=== PATIENT | female | born 1985 | race Caucasian/White ===

== ENCOUNTER 2022-07-12 15:51 | Inpatient (IN) ==
[2022-07-12] MEDS ORDERED: LIDOCAINE 1% LOCAL 20 ML VIAL INFIL PRN (16:39)
[2022-07-12] MEDS ORDERED: LACTATED RINGER'S 1,000 ML IV PRN (16:39)
[2022-07-12] MEDS ORDERED: OXYTOCIN 30 UNITS/500 ML BAG IV PRN (16:39)
[2022-07-12] MEDS ORDERED: ceFAZolin 2000MG 2,000 MG/15 ML SYR IV STA (17:02)
[2022-07-12] MEDS ORDERED: BETAMETH SOD PHOS/ACETATE IA 6 MG/ML IM STA (17:03)
--- NOTE | 2022-07-12 17:14 | History & Physical Report ---
Date of Service July 12, 2022 Assessment & Plan (1) Dichorionic diamniotic twin : Plan: Spontaneous labor. Given advanced dilation and active contractions, patient is not able to be safely transferred to a tertiary center for delivery. I discussed this with her - will plan for delivery here, and the babies will likely need to be transferred for NICU care after delivery. I have discussed the patient's presentation with our nursery team and on-call carpet measurer. Will give ancef for GBS unknown - PCN allergy, hives, has taken keflex in the past. Celestone for lung maturity. I discussed vaginal delivery vs . Patient would like to attempt vaginal delivery. We discussed risks vs benefits - there is a risk of needing to perform a STAT for the 2nd twin. We reviewed consent for , including risks of hemorrhage, injury to surrounding organs/babies, blood clot, infection, scarring. She would like to get an epidural. I have discussed the case and plans for double-setup for delivery in OR with on-call anesthesiologist. I have called for a 2nd seam taper machine to be available to help with delivery - on- call doctor for our group tomorrow. Admission and Anticipated Discharge Date Admission Date: July 12, 2022 History of Present Illness Chief Complaint: rupture of membranes Primary Care Provider: Susan Wall, DO 36yo @ 34 0/7 with di/di twins, gush of clear fluid at home at 3:30 pm today. No vaginal bleeding. Some decrease in movement of babies today, but currently feeling them moving. Also feeling ctx, not really able to quantify. She also has asthma, occasional use of inhaler. H/o laparoscopic gallbladder removal. Was attending routine care at [place], however has moved to [place] and had her initial nursing visit with our practice. Upcoming first doctor visit with our practice is on Saturday. History of vaginal delivery x 2, her other children are 14 and 16 years old. Allergies Allergy/AdvReac Type Severity Reaction Status Date / Time bee venom protein (honey bee) Allergy Severe HIVES, Verified 02/27/15 19:30 LUMP IN THROAT adhesive Allergy Unknown UNKNOWN Unverified 02/27/15 19:30 Penicillins Allergy Unknown HIVES Verified 02/27/15 19:30 Sulfa (Sulfonamide Allergy Unknown Verified 06/07/15 19:30 Antibiotics) Home Medications Medication Instructions Recorded Confirmed Type albuterol sulfate PO PRN 07/11/22 07/11/22 History aspirin 81 mg tablet,delayed 81 mg PO DAILY 07/11/22 07/11/22 History release (Adult Low Dose Aspirin) docusate sodium [Colace] PO 07/11/22 07/11/22 History epinephrine [EpiPen] subcut 07/11/22 07/11/22 History ferrous sulfate PO 07/11/22 07/11/22 History prenat.vits,mikaela,[id number] 1 tab PO DAILY 07/11/22 07/11/22 History Patient History Medical History (Updated 07/11/22 @ 15:24 by Kassy Carolina) Asthma Carotidynia Finger laceration History of chicken pox Kidney stone Migraine Surgical History (Updated 07/11/22 @ 15:25 by Kassy Carolina) History of lithotripsy S/P cholecystectomy S/P wisdom tooth extraction Family History (Updated 07/11/22 @ 15:13 by Kassy Carolina) Mother Hypertension Diabetes Denies family history of Ovarian cancer Breast cancer Colorectal cancer Social History (Updated 07/11/22 @ 15:14 by Kassy Carolina) Smoking Status: Current every day smoker Cigarettes Per Day: 10; Second Hand Exposure: Yes; Do You Dip or Chew Tobacco: No; Tobacco Cessation Education Requested by Patient: No Hx Alcohol Use: No Hx Substance Use: No Preferred Language: Croatian Communication Ability: Effective Topographical Field Assistant Required: No Beliefs That Will Affect Care: None marital status: marital status details: satcy Morales (28) currently no phone number Current Living Situation Comment: Lives with mother, father, and 2 kids; ages 14 and 15 current occupational status: employed 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 Sterile spec exam: +pooling, + ferning, +nitrizine. Limited bedside ultrasound: cephalic/cephalic. Constitutional: WD/WN, vitals as above Respiratory: normal respiratory effort, lungs clear to auscultation no respiratory distress Cardiovascular: Rate/Rhythm: regular rate and regular rhythm Gastrointestinal (Abdomen): Inspection/Auscultation: abdomen normal to inspection Percussion/Palpation: abdomen soft; abdomen nontender Gravid. No s/s chorio or abruption. Skin: no rashes, warm and dry Psychiatric: A+Ox3, euthymic affect Results & Data ([facility]) Vital Signs (Past 12 Hours) Vital Signs Pulse BP 07/12/22 17:05 76 150/55 H 07/12/22 16:44 83 106/55 L Coding Level of Care Code None Diagnoses Dichorionic diamniotic twin O30.049
[2022-07-12 17:31] LABS: Hematocrit (blood only) 32.8 % (34.1-44.9); Hemoglobin 11.1 g/dl (12.0-16.0); Mean Corpuscular Hemoglobin 28.9 pg (25.0-34.0); Mean Corpuscular Hgb Conc 33.8 g/dL (32.0-36.0); Mean Corpuscular Volume 85.4 fL (80.0-100.0); Mean Platelet Volume 10.4 fL (9.4-12.3); Platelet Count 234 K/uL (130-400); RDW Coefficient of Variation 13.7 % (11.5-14.5); RDW Standard Deviation 42.6 fL (36.4-46.3); Red Blood Count 3.84 M/uL (3.93-5.22); White Blood Count 9.22 K/ul (4.8-10.8)
[2022-07-12] MEDS ORDERED: ePHEDrine sulfate 50 MG/ML AMP ONE ×2 (17:54→23:32)
[2022-07-12] MEDS ORDERED: LIDOCAINE 2%/EPINEPHRINE 1:200,000 20 ML SDV ONE (17:55)
[2022-07-12] MEDS ORDERED: SODIUM CHLORIDE 0.9% INJ 10 ML VIAL ONE (17:55)
[2022-07-12] MEDS ORDERED: BUPIVACAINE 0.25% 30 ML VIAL ONE (17:55)
[2022-07-12] MEDS ORDERED: fentaNYL citrate 100 MCG/2 ML VIAL ONE ×2 (17:55→23:32)
[2022-07-12] MEDS ORDERED: fentaNYL 2MCG/ML ROPIVACAINE 1.25MG/ML 100 ML BAG EPI ONE (17:56)
[2022-07-12] MEDS ORDERED: ePHEDrine sulfate 50 MG/ML AMP IV PRN ×2 (18:18→23:44)
[2022-07-12] MEDS ORDERED: NALBUPHINE HCL INJ 10 MG/ML AMP IV PRN ×2 (18:18→23:44)
[2022-07-12] MEDS ORDERED: fentaNYL 2MCG/ML ROPIVACAINE 1.25MG/ML 100 ML BAG EPI PRN (18:18)
[2022-07-12] MEDS ORDERED: ONDANSETRON INJ 2 MG/ML 2 ML VIAL IV PRN ×2 (18:18→23:44)
[2022-07-12] MEDS ORDERED: NALOXONE HCL 1 MG in SODIUM CHLORIDE 0.9% 1000ML 1,000 ML IV PRN ×2 (18:18→23:44)
[2022-07-12] MEDS ORDERED: NALOXONE HCL 0.4 MG/1 ML VIAL/CARP IV PRN ×2 (18:18→23:44)
[2022-07-12] MEDS ORDERED: diphenhydrAMINE 50 MG/ML VIAL IV PRN ×2 (18:18→23:44)
--- NOTE | 2022-07-12 18:21 | Anesthesiology Consultation ---
Date of Service July 12, 2022 Assessment & Plan (1) Encounter for pre-operative examination: Chart Review Chart Review: Patient NOT seen in Pre Admission Testing and Acceptable Risk for Labor Epidural Consults Requested none History Height/Weight Height: 5 ft 3.75 in Weight: 120.3 kg Allergies Allergy/AdvReac Type Severity Reaction Status Date / Time bee venom protein (honey bee) Allergy Severe HIVES, Verified 02/27/15 19:30 LUMP IN THROAT adhesive Allergy Unknown UNKNOWN Unverified 02/27/15 19:30 Penicillins Allergy Unknown HIVES Verified 02/27/15 19:30 Sulfa (Sulfonamide Allergy Unknown Verified 02/27/15 19:30 Antibiotics) Medications Home Medications Medication Instructions Recorded Confirmed Last Taken albuterol sulfate PO PRN 07/11/22 07/11/22 Unknown aspirin 81 mg tablet,delayed 81 mg PO DAILY 07/11/22 07/11/22 Unknown release (Adult Low Dose Aspirin) docusate sodium [Colace] PO 07/11/22 07/11/22 Unknown epinephrine [EpiPen] subcut 07/11/22 07/11/22 Unknown ferrous sulfate PO 07/11/22 07/11/22 Unknown prenat.vits,mikaela,[id number] 1 tab PO DAILY 07/11/22 07/11/22 Unknown Active Medications Generic Name Dose Route Start Last Admin Trade Name Freq PRN Reason Stop Dose Admin Lactated Ringer's 1,000 mls @ 125 mls/hr 07/12/22 16:39 07/12/22 18:31 Lr IV 07/14/22 16:38 125 mls/hr .Q8H PRN Administration L&D Protocol Protocol Past Medical History Medical History Asthma Carotidynia Finger laceration History of chicken pox Kidney stone Migraine Exercise / Class Metabolic Activity II 4-5 Yardwork/Stairs/Walk up hill Past Family History Family History Mother Hypertension Diabetes Denies family history of Ovarian cancer Breast cancer Colorectal cancer Past Surgical History Surgical History History of lithotripsy S/P cholecystectomy S/P wisdom tooth extraction Past Anesthesia History No Hx of Anesthesia Complications and No Family Hx of Anesthesia Complications History of PONV No Hx of PONV and No Hx of Motion Sickness Social History Smoking Status: Current every day smoker tobacco type: cigarettes Smoking cigarettes per day: 10 Do You Dip or Chew Tobacco: No Hx Alcohol Use: No Hx Substance Use: No substance use type: does not use Physical Exam Vital Signs Last Vital Signs Temp 37.1 C 07/12/22 16:59 Pulse 79 07/12/22 18:42 Resp 16 07/12/22 16:59 BP 115/62 07/12/22 18:42 Pulse Ox 97 07/12/22 18:42 Testing Laboratory Results 07/12/22 16:57 Blood Type B Positive 07/12/22 16:57 Antibody Screen NEGATIVE 07/12/22 16:57
[2022-07-12] MEDS ORDERED: Flu Vaccine (Fluarix) 0.5mL SYR (Standard Dose) IM ONE (19:15)
[2022-07-12] MEDS ORDERED: SODIUM CHLORIDE 0.9% 250 ML IV PRN (19:17)
--- NOTE | 2022-07-12 20:15 | Labor Progress Brief Note ---
Date of Service July 12, 2022 Subjective Comfortable with epidural. 6-7/80/-2 FHT Cat 1 both babies [place] Q 2 Continue labor. Assessment & Plan Admission and Anticipated Discharge Date Admission Date: July 12, 2022 Results & Data ([facility]) Vital Signs (Past 12 Hours) Vital Signs Temp Pulse Resp BP Pulse Ox 07/12/22 19:14 36.6 C 18 07/12/22 16:59 37.1 C 83 16 106/55 L 07/12/22 20:12 70 98 07/12/22 20:10 69 112/52 L 07/12/22 20:07 78 99 07/12/22 20:02 75 99 07/12/22 19:57 79 99 07/12/22 19:56 73 109/52 L 07/12/22 19:52 80 99 07/12/22 19:47 77 99 07/12/22 19:42 79 100 07/12/22 19:37 74 100 07/12/22 19:36 74 107/54 L 07/12/22 19:32 72 100 07/12/22 19:30 73 109/55 L 07/12/22 19:27 68 100 07/12/22 19:25 72 109/52 L 07/12/22 19:22 76 100 07/12/22 19:21 18 07/12/22 19:21 18 07/12/22 19:19 65 106/51 L 07/12/22 19:17 100 07/12/22 19:17 75 07/12/22 19:17 73 112/53 L 07/12/22 19:15 67 116/54 L 07/12/22 19:12 68 100 07/12/22 19:13 68 111/56 L 07/12/22 19:11 72 18 112/55 L 07/12/22 19:09 75 112/52 L 07/12/22 19:07 77 109/50 L 100 07/12/22 19:05 75 108/56 L 07/12/22 19:03 71 106/53 L 07/12/22 19:02 79 100 07/12/22 19:01 75 18 114/54 L 07/12/22 18:59 78 104/50 L 07/12/22 18:57 100 07/12/22 18:57 74 07/12/22 18:57 72 111/52 L 07/12/22 18:55 75 106/53 L 07/12/22 18:52 78 100 07/12/22 18:53 71 110/51 L 07/12/22 18:51 67 110/51 L 07/12/22 18:49 76 106/56 L 07/12/22 18:47 100 07/12/22 18:47 79 07/12/22 18:47 79 99/50 L 07/12/22 18:45 82 107/58 L 07/12/22 18:42 97 07/12/22 18:42 79 07/12/22 18:42 71 115/62 07/12/22 18:41 73 112/62 07/12/22 18:39 74 125/68 07/12/22 18:37 82 117/69 100 07/12/22 18:34 75 117/63 07/12/22 18:33 85 130/72 07/12/22 18:32 86 131/75 100 07/12/22 18:27 92 H 100 07/12/22 18:25 75 100 07/12/22 18:23 75 117/61 07/12/22 18:20 75 99 07/12/22 17:05 76 150/55 H 07/12/22 16:44 83 106/55 L Coding Level of Care Code None
--- NOTE | 2022-07-12 22:03 | Labor Progress Brief Note ---
Date of Service July 12, 2022 Subjective Pressure with ctx. FHT Cat 1 both babies [place] Q 2 SVE 7-8/80/-2 Bladder emptied for approx 800cc clear yellow urine. More pressure after bladder drained. Assessment & Plan Admission and Anticipated Discharge Date Admission Date: July 12, 2022 Results & Data ([facility]) Vital Signs (Past 12 Hours) Vital Signs Temp Pulse Resp BP Pulse Ox 07/12/22 19:14 36.6 C 18 07/12/22 16:59 37.1 C 83 16 106/55 L 07/12/22 21:57 76 98 07/12/22 21:56 75 112/53 L 07/12/22 21:52 73 99 07/12/22 21:47 72 100 07/12/22 21:42 82 99 07/12/22 21:41 78 119/57 L 07/12/22 21:37 74 98 07/12/22 21:32 70 98 07/12/22 21:27 70 98 07/12/22 21:26 70 113/50 L 07/12/22 21:22 72 97 07/12/22 21:01 18 07/12/22 21:01 36.7 C 18 07/12/22 21:17 74 98 07/12/22 21:12 69 98 07/12/22 21:10 69 104/55 L 07/12/22 21:07 68 98 07/12/22 21:02 77 100 07/12/22 20:57 69 100 07/12/22 20:52 76 99 07/12/22 20:29 18 07/12/22 20:29 18 07/12/22 19:35 18 07/12/22 19:35 18 07/12/22 19:55 18 07/12/22 19:55 18 07/12/22 20:47 70 99 07/12/22 20:42 72 99 07/12/22 20:41 74 107/51 L 07/12/22 20:37 69 100 07/12/22 20:32 64 99 07/12/22 20:27 75 98 07/12/22 20:26 66 106/50 L 07/12/22 20:22 71 99 07/12/22 20:17 72 99 07/12/22 20:12 70 98 07/12/22 20:10 69 112/52 L 07/12/22 20:07 78 99 07/12/22 20:02 75 99 07/12/22 19:57 79 99 07/12/22 19:56 73 109/52 L 07/12/22 19:52 80 99 07/12/22 19:47 77 99 07/12/22 19:42 79 100 07/12/22 19:37 74 100 07/12/22 19:36 74 107/54 L 07/12/22 19:32 72 100 07/12/22 19:30 73 109/55 L 07/12/22 19:27 68 100 07/12/22 19:25 72 109/52 L 07/12/22 19:22 76 100 07/12/22 19:21 18 07/12/22 19:21 18 07/12/22 19:19 65 106/51 L 07/12/22 19:17 100 07/12/22 19:17 75 07/12/22 19:17 73 112/53 L 07/12/22 19:15 67 116/54 L 07/12/22 19:12 68 100 07/12/22 19:13 68 111/56 L 07/12/22 19:11 72 18 112/55 L 07/12/22 19:09 75 18 112/52 L 07/12/22 19:07 77 109/50 L 100 07/12/22 19:05 75 108/56 L 07/12/22 19:03 71 106/53 L 07/12/22 19:02 79 100 07/12/22 19:01 75 18 114/54 L 07/12/22 18:59 78 104/50 L 07/12/22 18:57 100 07/12/22 18:57 74 07/12/22 18:57 72 111/52 L 07/12/22 18:55 75 106/53 L 07/12/22 18:52 78 100 07/12/22 18:53 71 110/51 L 07/12/22 18:51 67 110/51 L 07/12/22 18:49 76 106/56 L 07/12/22 18:47 100 07/12/22 18:47 79 07/12/22 18:47 79 99/50 L 07/12/22 18:45 82 107/58 L 07/12/22 18:42 97 10/20/22 18:42 79 07/12/22 18:42 71 115/62 07/12/22 18:41 73 112/62 07/12/22 18:39 74 125/68 07/12/22 18:37 82 117/69 100 07/12/22 18:34 75 117/63 07/12/22 18:33 85 130/72 07/12/22 18:32 86 131/75 100 07/12/22 18:27 92 H 100 07/12/22 18:25 75 100 07/12/22 18:23 75 117/61 07/12/22 18:20 75 99 07/12/22 17:05 76 150/55 H 07/12/22 16:44 83 106/55 L Coding Level of Care Code None
[2022-07-12] MEDS ORDERED: PROPOFOL IV EMULSION 10 MG/ML 20 ML VIAL IV ONE (23:28)
[2022-07-12] MEDS ORDERED: PHENYLEPHRINE 100MCG/ML 5ML SYR ONE (23:28)
[2022-07-12] MEDS ORDERED: SUCCINYLCHOLINE 100MG/5ML SYR IV ONE (23:28)
[2022-07-12] MEDS ORDERED: ONDANSETRON INJ 2 MG/ML 2 ML VIAL ONE (23:28)
[2022-07-12] MEDS ORDERED: OXYTOCIN 10 UNITS/ML 10ML VIAL ONE (23:32)
[2022-07-12] MEDS ORDERED: MoRPHine SULFATE PF 1 MG/ML 10 ML AMP/VIAL ONE (23:33)
[2022-07-12] MEDS ORDERED: ceFAZolin 1000MG 1,000 MG/7.5 ML SYR IV PRN (23:39)
[2022-07-12] MEDS ORDERED: AZITHROMYCIN 500 MG in DEXTROSE 5% 250 ML IV STA (23:42)
[2022-07-12] MEDS ORDERED: MoRPHine SULFATE PF 1 MG/ML 10 ML AMP/VIAL EPI ONE (23:44)
[2022-07-12] MEDS ORDERED: LACTATED RINGER'S 500 ML IV PRN (23:44)
[2022-07-12] MEDS ORDERED: MoRPHine SULFATE 2 MG/ML CARP IV PRN (23:44)
[2022-07-12] MEDS ORDERED: PROMETHAZINE HCL 6.25 MG in SODIUM CHLORIDE 0.9% 50 ML IV PRN (23:44)
[2022-07-12] MEDS ORDERED: KETOROLAC 30 MG/ML VIAL IV PRN (23:44)
[2022-07-12] MEDS ORDERED: NALOXONE HCL 0.08 MG in SYRINGE 1.8 ML IV PRN (23:44)
[2022-07-12] MEDS ORDERED: DC INTRASPINAL MORPHINE SCH (23:45)
[2022-07-12] MEDS ORDERED: NO NARCOTICS OR SEDATIVES SCH (23:45)
[2022-07-12] MEDS ORDERED: SODIUM CHLORIDE 0.9% 1000ML 1,000 ML IV SCH (23:45)
[2022-07-13 00:41] LABS: Base Excess Cord Arterial Bld -0.8 mEq/L (-9-1.8); CO2 Cord Arterial Blood 47 mmHg (39.1-73.5); HCO3 Cord Arterial Blood 25 mmol/L (19.7-28.5); Oxygen Sat Cord Arterial Blood 66.6 % (<60); PO2 Cord Arterial Blood 30 mmHg (4.1-31.7); pH Cord Arterial Blood 7.34 (7.1-7.38)
[2022-07-13 00:44] LABS: Base Excess Cord Venous Blood -2.5 mEq/L (-7.7-1.9); Cord Venous Blood HCO3 23 mmol/L (18.4-26.8); Cord Venous Blood PCO2 39 mmHg (30.4-57.2); Cord Venous Blood PO2 47 mmHg (14.1-43.3); Cord Venous Blood pH 7.37 (7.20-7.44); O2 Saturation Cord Venous Bld 87.6 % (<68)
[2022-07-13 00:50] LABS: Base Excess Cord Venous Blood -10.4 mEq/L (-7.7-1.9); Cord Venous Blood HCO3 21 mmol/L (18.4-26.8); Cord Venous Blood PCO2 72 mmHg (30.4-57.2); Cord Venous Blood PO2 24 mmHg (14.1-43.3); Cord Venous Blood pH 7.07 (7.20-7.44); O2 Saturation Cord Venous Bld < 60.0 % (<68)
--- NOTE | 2022-07-13 00:55 | Anesthesia Procedure Note ---
Date of Service July 13, 2022 Anesthesia Post Epidural Note Vital Signs Vital Signs: Temp Pulse Resp BP Pulse Ox 36.7 C 119 H 18 116/55 L 100 07/12/22 21:01 07/13/22 00:54 07/12/22 21:01 07/13/22 00:46 07/13/22 00:54 Notes Mental Status: alert / awake / arousable and participated in evaluation Nausea / Vomiting: adequately controlled Pain: adequately controlled Airway Patency, RR, SpO2: stable & adequate BP & HR: stable & adequate Hydration State: stable & adequate Neuraxial Anesthesia: was administered and sensory block is resolving Anesthetic Complications: no major complications apparent and Pt Satisfied with anesthetic care Epidural: Removed without complications and With tip intact
[2022-07-13] MEDS ORDERED: BENZOCAINE 20% AER SPR 82.5 GM CAN EXT PRN (00:56)
[2022-07-13] MEDS ORDERED: HYDROCORTISONE ACETATE 25 MG SUPP PR PRN (00:56)
--- NOTE | 2022-07-13 00:56 | Anesthesiology Progress Note ---
Date of Service July 13, 2022 Anesthesia Post Procedure Vital Signs Vital Signs: Temp Pulse Resp BP Pulse Ox 07/12/22 19:14 36.6 C 18 07/12/22 16:59 37.1 C 83 16 106/55 L 07/13/22 00:54 119 H 100 07/13/22 00:51 102 H 91 07/13/22 00:49 104 H 100 07/13/22 00:46 108 H 116/55 L 07/13/22 00:44 109 H 100 07/12/22 23:10 77 98 07/12/22 23:05 85 97 07/12/22 23:00 87 100 07/12/22 22:47 84 100 07/12/22 22:42 79 98 07/12/22 22:43 83 109/66 07/12/22 22:37 77 99 07/12/22 22:32 81 98 07/12/22 22:27 75 98 07/12/22 22:25 75 110/57 L 07/12/22 22:22 76 99 07/12/22 22:17 75 99 07/12/22 22:12 81 97 07/12/22 22:11 72 115/53 L 07/12/22 22:07 75 98 07/12/22 22:02 77 98 07/12/22 21:57 76 98 07/12/22 21:56 75 112/53 L 07/12/22 21:52 73 99 07/12/22 21:47 72 100 07/12/22 21:42 82 99 07/12/22 21:41 78 119/57 L 07/12/22 21:37 74 98 07/12/22 21:32 70 98 07/12/22 21:27 70 98 07/12/22 21:26 70 113/50 L 07/12/22 21:22 72 97 07/12/22 21:01 18 07/12/22 21:01 36.7 C 18 07/12/22 21:17 74 98 07/12/22 21:12 69 98 07/12/22 21:10 69 104/55 L 07/12/22 21:07 68 98 07/12/22 21:02 77 100 07/12/22 20:57 69 100 07/12/22 20:52 76 99 07/12/22 20:29 18 07/12/22 20:29 18 07/12/22 19:35 18 07/12/22 19:35 18 07/12/22 19:55 18 07/12/22 19:55 18 07/12/22 20:47 70 99 07/12/22 20:42 72 99 07/12/22 20:41 74 107/51 L 07/12/22 20:37 69 100 07/12/22 20:32 64 99 07/12/22 20:27 75 98 07/12/22 20:26 66 106/50 L 07/12/22 20:22 71 99 07/12/22 20:17 72 99 07/12/22 20:12 70 98 07/12/22 20:10 69 112/52 L 07/12/22 20:07 78 99 07/12/22 20:02 75 99 07/12/22 19:57 79 99 07/12/22 19:56 73 109/52 L 07/12/22 19:52 80 99 07/12/22 19:47 77 99 07/12/22 19:42 79 100 07/12/22 19:37 74 100 07/12/22 19:36 74 107/54 L 07/12/22 19:32 72 100 07/12/22 19:30 73 109/55 L 07/12/22 19:27 68 100 07/12/22 19:25 72 109/52 L 07/12/22 19:22 76 100 07/12/22 19:21 18 07/12/22 19:21 18 07/12/22 19:19 65 106/51 L 07/12/22 19:17 100 07/12/22 19:17 75 07/12/22 19:17 73 112/53 L 07/12/22 19:15 67 116/54 L 07/12/22 19:12 68 100 07/12/22 19:13 68 111/56 L 07/12/22 19:11 72 18 112/55 L 07/12/22 19:09 75 18 112/52 L 07/12/22 19:07 77 109/50 L 100 07/12/22 19:05 75 108/56 L 07/12/22 19:03 71 106/53 L 07/12/22 19:02 79 100 07/12/22 19:01 75 18 114/54 L 07/12/22 18:59 78 104/50 L 07/12/22 18:57 100 07/12/22 18:57 74 07/12/22 18:57 72 111/52 L 07/12/22 18:55 75 106/53 L 07/12/22 18:52 78 100 07/12/22 18:53 71 110/51 L 07/12/22 18:51 67 110/51 L 07/12/22 18:49 76 106/56 L 07/12/22 18:47 100 07/12/22 18:47 79 07/12/22 18:47 79 99/50 L 07/12/22 18:45 82 107/58 L 07/12/22 18:42 97 07/12/22 18:42 79 07/12/22 18:42 71 115/62 07/12/22 18:41 73 112/62 07/12/22 18:39 74 125/68 07/12/22 18:37 82 117/69 100 07/12/22 18:34 75 117/63 07/12/22 18:33 85 130/72 07/12/22 18:32 86 131/75 100 07/12/22 18:27 92 H 100 07/12/22 18:25 75 100 07/12/22 18:23 75 117/61 07/12/22 18:20 75 99 07/12/22 17:05 76 150/55 H 07/12/22 16:44 83 106/55 L Transfer of Care Handoff Completed per policy Notes Mental Status: alert / awake / arousable and participated in evaluation Patient Amnestic to Procedure: Yes Nausea / Vomiting: adequately controlled Pain: adequately controlled Airway Patency, RR, SpO2: stable & adequate BP & HR: stable & adequate Hydration State: stable & adequate Anesthetic Complications: no major complications apparent and Pt Satisfied with anesthetic care
--- NOTE | 2022-07-13 01:06 | Operative Report ---
PG Post Operative Report Pre & Post Diagnosis Operation Date: 07/12/22 23:30 Pre: Di/di twin gestation, labor Post: same + umbilical cord prolapse of Twin B I identified the patient and participated in the time-out.: Yes Procedure Operation Date: 07/12/22 23:30 Spontaneous vaginal delivery of Twin A, STAT low-transverse section with T-incision of Twin B Surgeon Anya Yu, DO Lead Applications Developer Mimi Salvador MD Estimated Blood Loss 700 Findings Consistent with Post-Op Diagnosis Viable male neonates. Twin A: Apgars 8/9. Twin B: Apgars 2/9. Normal appearing uterus, fallopian tubes, ovaries. Specimens Cord blood Twin B, Cord gas Twin A and B. Placentas. Drains marte clear yellow Anesthesia Type General/Epidural Complications none Disposition Accompanied Patient To Recovery: No Disposition: L&D Indications 36yo @ 34 0/7 - di/di twin gestation, spontaneous labor. Twin A delivered vaginally, however then Twin B's umbilical cord prolapsed, therefore primary section was performed. Description of Procedure The patient was seen in her labor and delivery room upon arrival, and la bor was diagnosed. At time of arrival, patient had progressed enough in labor that transfer to a tertiary center was not safe. We discussed informed consent for both vaginal delivery and section of twins, with likely need for transfer of babies to a NICU after . She preferred to attempt vaginal delivery. Informed consent discussed. Questions were answered. She was administered an epidural, and progressed in labor to complete dilation. She was then taken to the OR to deliver under a "double setup." Infant A delivered spontaneously with a few pushes, was placed on mother's chest and spontaneously cried. Delayed cord clamping was performed, and the cord was doubly clamped/cut. The was handed off to waiting production cook. Cord segment was obtained. Ultrasound showed Baby B in cephalic presentation, however Baby B was high in the uterus - head was barely palpable. The cervix clamped down after delivery of Twin A. Then a loop of umbilical cord of Twin B was pa lpable - separate from the remaining umbilical cord of Baby A. Decision was made to deliver Twin B by section - this was quickly discussed with patient and her mother, and she was agreeable to proceed. She was then prepared with betadine and draped in the supine position with a leftward tilt. Timeout was confirmed. Inadequate pain control with epidural, therefore patient was put under general anesthesia. A Pfannenstiel skin incision was made with a scalpel, and carried through to the underlying layer of fascia. Fascia was nicked at midline, and this incision was extended bilaterally. The superior aspect of the fascial incision was grasped with Matt clamps x2, elevated off the underlying rectus abdominis muscles, and dissected sharply and bluntly. In similar fashion, the inferior aspect of the fascial incision was dissected. The rectus abdominis muscles were , and the peritoneum was entered bluntly digitally. This was extended bilaterally. The bladder flap was taken down carefully using Metzenbaum scissors. Using a new scalpel, a low transverse uterine incision was created. Attempts were made to deliver the from the cephalic presentation - however the head was very high in the uterus, and uterine fundus was atonic. The baby could not be brought down to the incision, therefore the uterine incision was extended in a "T-incision" carefully with bandage scissors. The head was then able to be brought to the hysterotomy, and the head delivered, followed by shoulders and body. The cord was doubly clamped and cut, and the infant was handed off to the waiting production cook. A segment was retained for cord gases. Cord blood was obtained. The placenta was delivered spontaneously intact. The uterus was exteriorized, and cleared of all clots and debris. The hysterotomy extension was reapproximated with 3 layers of 0 Vicryl - a running layer of the inner 50%, then a running layer of the outer 50%, and then a baseball stitch of the serosa. The remaining hysterotomy incision was reapproximated using 0 Vicryl in a running locked stitch. A second layer of the same suture was used to imbricate the incision. Posterior uterus was evaluated and normal. The uterus was returned to the abdomen, and gutters were cleared of clots and debris. Excellent hemostasis was observed. The fascial incision was reapproximated using 0 Vicryl in a running stitch. The subcutaneous tissue was irrigated, and reapproximated using 2-0 plain gut in a running stitch. The skin was reapproximated using 4-0 Vicryl in a running subcuticular stitch. A WEI dressing was applied. The patient tolerated the procedure well, and will be taken to the recovery area in stable and good condition. Sponge, needle, instrument counts correct x 2. Vagina, perineum inspected and no lacerations noted. I attest to the content of the Intraoperative Record and any orders documented therein. Any exceptions are noted below. OB Procedure Charges [id number]
[2022-07-13] MEDS: OXYTOCIN 30 UNITS in LACTATED RINGER'S 1,000 ML IV SCH ×2 (02:25→11:27)
[2022-07-13 04:20] LABS: Amphetamines+Metham, Urine Neg (Neg); Barbiturates, Urine Neg (Neg); Benzodiazepine, Urine Neg (Neg); Cocaine, Urine Neg (Neg); MDMA (Ecstacy), Urine Neg (Neg); Methadone, Urine Neg (Neg); Opiate, Urine Pos (Neg); Phencyclidine, Urine Neg (Neg)
--- NOTE | 2022-07-13 05:50 | Obstetrical Progress Note ---
Date of Service <Stormy Bolaños, DO - Last Filed: 07/13/22 07:12> July 13, 2022 Assessment & Plan <Stormy Bolaños DO - Last Filed: 07/13/22 07:12> (1) Status post section: plan for d/c Jimenez, do a trial of OOB and ambulation and then progress diet as tolerated <Anya Yu, DO - Last Filed: 07/13/22 07:57> (1) Status post section: Subjective <Stormy Bolaños, DO - Last Filed: 07/13/22 07:12> Linda is a 36 y/o female who is POD #1 following delivery at 34 0/7 weeks. She had di/di twins. Twin A was born via and Twin B was born via stat C Section due to umbical cord prolapse. Moderate abdominal cramping well managed on analgesics. Still has Jimenez in place. No ambulation yet. Is passing gas and no bowel movement. Has some persistent lochia with some improvement this morning. Hopes to breastfeed in the future and plans to pump today. Review of Systems Denies fever, chills, sweats Denies shortness of breath, difficulty breathing, chest pain, palpitations, chest pressure. Denies breast pain. Denies dysuria. Denies headache or changes in vision. Physical Exam <Stormy Bolaños DO - Last Filed: 07/13/22 07:12> General: Alert, oriented. No acute distress. Cardiac: Regular rate and rhythm, no murmurs/rubs/gallops. Respiratory: Clear to auscultation bilaterally a/p, no wheezes/rales/rhonchi. No increased work of breathing. Symmetrical chest rise. No respiratory distress. Abdomen: Soft, nontender, nondistended. Bowel sounds present. Uterus: Uterine fundus firm, palpable 1 cm below umbilicus. Surgical scar clean and healing well. Lower Extremities: No lower extremity edema or swelling. No deep calf pain. Maite's negative bilaterally. Results & Data ([facility]) <Stormy Bolaños DO - Last Filed: 07/13/22 07:12> Vital Signs (Past 12 Hours) Vital Signs Temp Pulse Pulse Resp BP BP Pulse Ox 07/13/22 04:57 16 99 07/13/22 04:00 36.4 C L 90 16 105/65 97 07/13/22 04:00 18 97 07/13/22 03:18 14 07/13/22 01:40 14 07/13/22 01:30 14 07/13/22 01:20 14 07/13/22 01:10 16 07/13/22 00:50 16 07/13/22 02:20 14 07/13/22 01:50 14 07/13/22 01:00 16 07/12/22 19:14 36.6 C 18 07/13/22 03:24 99 07/13/22 03:24 92 H 07/13/22 03:24 91 H 97/50 L 07/13/22 03:19 81 98 07/13/22 03:14 86 98 07/13/22 03:09 96 H 101/53 L 100 07/13/22 03:04 104 H 99 07/13/22 02:59 91 H 98 07/13/22 02:58 99 H 105/56 L 07/13/22 02:54 104 H 99/48 L 99 07/13/22 02:49 83 99 07/13/22 02:44 94 H 99 07/13/22 02:39 99 07/13/22 02:39 82 07/13/22 02:39 93 H 100/54 L 07/13/22 02:34 105 H 100 07/13/22 02:29 75 99 07/13/22 02:24 99 07/13/22 02:24 82 07/13/22 02:24 91 H 100/55 L 07/13/22 02:19 75 99 07/13/22 02:14 92 H 99 07/13/22 02:09 98 07/13/22 02:09 94 H 07/13/22 02:09 96 H 107/57 L 07/13/22 02:04 87 99 07/13/22 01:59 87 99 07/13/22 01:54 91 H 100 07/13/22 01:49 87 97 07/13/22 01:44 85 99 07/13/22 01:39 95 H 98 07/13/22 01:34 100 H 100 07/13/22 01:29 89 99 07/13/22 01:24 96 H 100 07/13/22 01:19 89 100 07/13/22 01:14 94 H 100 07/13/22 01:09 92 H 100 07/13/22 01:04 102 H 100 07/13/22 00:59 101 H 100 07/13/22 00:54 119 H 100 07/13/22 00:51 102 H 91 07/13/22 00:49 104 H 100 07/13/22 00:46 108 H 116/55 L 07/13/22 00:44 109 H 100 07/12/22 23:10 77 98 07/12/22 23:05 85 97 07/12/22 23:00 87 100 07/12/22 22:47 84 100 07/12/22 22:42 79 98 07/12/22 22:43 83 109/66 07/12/22 22:37 77 99 07/12/22 22:32 81 98 07/12/22 22:27 75 98 07/12/22 22:25 75 110/57 L 07/12/22 22:22 76 99 07/12/22 22:17 75 99 07/12/22 22:12 81 97 07/12/22 22:11 72 115/53 L 07/12/22 22:07 75 98 07/12/22 22:02 77 98 07/12/22 21:57 76 98 07/12/22 21:56 75 112/53 L 07/12/22 21:52 73 99 07/12/22 21:47 72 100 07/12/22 21:42 82 99 07/12/22 21:41 78 119/57 L 07/12/22 21:37 74 98 07/12/22 21:32 70 98 07/12/22 21:27 70 98 07/12/22 21:26 70 113/50 L 07/12/22 21:22 72 97 07/12/22 21:01 18 07/12/22 21:01 36.7 C 18 07/12/22 21:17 74 98 07/12/22 21:12 69 98 07/12/22 21:10 69 104/55 L 07/12/22 21:07 68 98 07/12/22 21:02 77 100 07/12/22 20:57 69 100 07/12/22 20:52 76 99 07/12/22 20:29 18 07/12/22 20:29 18 07/12/22 19:35 18 07/12/22 19:35 18 07/12/22 19:55 18 07/12/22 19:55 18 07/12/22 20:47 70 99 07/12/22 20:42 72 99 07/12/22 20:41 74 107/51 L 07/12/22 20:37 69 100 07/12/22 20:32 64 99 07/12/22 20:27 75 98 07/12/22 20:26 66 106/50 L 07/12/22 20:22 71 99 07/12/22 20:17 72 99 07/12/22 20:12 70 98 07/12/22 20:10 69 112/52 L 07/12/22 20:07 78 99 07/12/22 20:02 75 99 07/12/22 19:57 79 99 07/12/22 19:56 73 109/52 L 07/12/22 19:52 80 99 07/12/22 19:47 77 99 07/12/22 19:42 79 100 07/12/22 19:37 74 100 07/12/22 19:36 74 107/54 L 07/12/22 19:32 72 100 07/12/22 19:30 73 109/55 L 07/12/22 19:27 68 100 07/12/22 19:25 72 109/52 L 07/12/22 19:22 76 100 07/12/22 19:21 18 07/12/22 19:21 18 07/12/22 19:19 65 106/51 L 07/12/22 19:17 100 07/12/22 19:17 75 07/12/22 19:17 73 112/53 L 07/12/22 19:15 67 116/54 L 07/12/22 19:12 68 100 07/12/22 19:13 68 111/56 L 07/12/22 19:11 72 18 112/55 L 07/12/22 19:09 75 18 112/52 L 07/12/22 19:07 77 109/50 L 100 07/12/22 19:05 75 108/56 L 07/12/22 19:03 71 106/53 L 07/12/22 19:02 79 100 07/12/22 19:01 75 18 114/54 L 07/12/22 18:59 78 104/50 L 07/12/22 18:57 100 07/12/22 18:57 74 07/12/22 18:57 72 111/52 L 07/12/22 18:55 75 106/53 L 07/12/22 18:52 78 100 07/12/22 18:53 71 110/51 L 07/12/22 18:51 67 110/51 L 07/12/22 18:49 76 106/56 L 07/12/22 18:47 100 07/12/22 18:47 79 07/12/22 18:47 79 99/50 L 07/12/22 18:45 82 107/58 L 07/12/22 18:42 97 07/12/22 18:42 79 07/12/22 18:42 71 115/62 07/12/22 18:41 73 112/62 07/12/22 18:39 74 125/68 07/12/22 18:37 82 117/69 100 07/12/22 18:34 75 117/63 07/12/22 18:33 85 130/72 07/12/22 18:32 86 131/75 100 07/12/22 18:27 92 H 100 07/12/22 18:25 75 100 07/12/22 18:23 75 117/61 07/12/22 18:20 75 99 O2 Del Method 07/13/22 04:57 07/13/22 04:00 Room Air 07/13/22 04:00 07/13/22 03:18 07/13/22 01:40 07/13/22 01:30 07/13/22 01:20 07/13/22 01:10 07/13/22 00:50 07/13/22 02:20 07/13/22 01:50 07/13/22 01:00 07/12/22 19:14 07/13/22 03:24 07/13/22 03:24 07/13/22 03:24 07/13/22 03:19 07/13/22 03:14 07/13/22 03:09 07/13/22 03:04 07/13/22 02:59 07/13/22 02:58 07/13/22 02:54 07/13/22 02:49 07/13/22 02:44 07/13/22 02:39 07/13/22 02:39 07/13/22 02:39 07/13/22 02:34 07/13/22 02:29 07/13/22 02:24 07/13/22 02:24 07/13/22 02:24 07/13/22 02:19 07/13/22 02:14 07/13/22 02:09 07/13/22 02:09 07/13/22 02:09 07/13/22 02:04 07/13/22 01:59 07/13/22 01:54 07/13/22 01:49 07/13/22 01:44 07/13/22 01:39 07/13/22 01:34 07/13/22 01:29 07/13/22 01:24 07/13/22 01:19 07/13/22 01:14 07/13/22 01:09 07/13/22 01:04 07/13/22 00:59 07/13/22 00:54 07/13/22 00:51 07/13/22 00:49 07/13/22 00:46 07/13/22 00:44 07/12/22 23:10 07/12/22 23:05 07/12/22 23:00 07/12/22 22:47 07/12/22 22:42 07/12/22 22:43 07/12/22 22:37 07/12/22 22:32 07/12/22 22:27 07/12/22 22:25 07/12/22 22:22 07/12/22 22:17 07/12/22 22:12 07/12/22 22:11 07/12/22 22:07 07/12/22 22:02 07/12/22 21:57 07/12/22 21:56 07/12/22 21:52 07/12/22 21:47 07/12/22 21:42 07/12/22 21:41 07/12/22 21:37 07/12/22 21:32 07/12/22 21:27 07/12/22 21:26 07/12/22 21:22 07/12/22 21:01 07/12/22 21:01 07/12/22 21:17 07/12/22 21:12 07/12/22 21:10 07/12/22 21:07 07/12/22 21:02 07/12/22 20:57 07/12/22 20:52 07/12/22 20:29 07/12/22 20:29 07/12/22 19:35 07/12/22 19:35 07/12/22 19:55 07/12/22 19:55 07/12/22 20:47 07/12/22 20:42 07/12/22 20:41 07/12/22 20:37 07/12/22 20:32 07/12/22 20:27 07/12/22 20:26 07/12/22 20:22 07/12/22 20:17 07/12/22 20:12 07/12/22 20:10 07/12/22 20:07 07/12/22 20:02 07/12/22 19:57 07/12/22 19:56 07/12/22 19:52 07/12/22 19:47 07/12/22 19:42 07/12/22 19:37 07/12/22 19:36 07/12/22 19:32 07/12/22 19:30 07/12/22 19:27 07/12/22 19:25 07/12/22 19:22 07/12/22 19:21 07/12/22 19:21 07/12/22 19:19 07/12/22 19:17 07/12/22 19:17 07/12/22 19:17 07/12/22 19:15 07/12/22 19:12 07/12/22 19:13 07/12/22 19:11 07/12/22 19:09 07/12/22 19:07 07/12/22 19:05 07/12/22 19:03 07/12/22 19:02 07/12/22 19:01 07/12/22 18:59 07/12/22 18:57 07/12/22 18:57 07/12/22 18:57 07/12/22 18:55 07/12/22 18:52 07/12/22 18:53 07/12/22 18:51 07/12/22 18:49 07/12/22 18:47 07/12/22 18:47 07/12/22 18:47 07/12/22 18:45 07/12/22 18:42 07/12/22 18:42 07/12/22 18:42 07/12/22 18:41 07/12/22 18:39 07/12/22 18:37 07/12/22 18:34 07/12/22 18:33 07/12/22 18:32 07/12/22 18:27 07/12/22 18:25 07/12/22 18:23 07/12/22 18:20 <Anya Yu, - Last Filed: 07/13/22 07:57> Co-Signing Physician Notes Resident Physician Supervision Note: I interviewed and examined the patient. Discussed with Dr. Bolaños and agree with findings and plan as documented in the note. Any exceptions or clarifications are listed here: POD#1, doing well. WEI in place. Discussed plans for advancing diet and ambulation. Documented By: Anya Yu DO Resident Activity Tracking <Stormy Bolaños, - Last Filed: 07/13/22 07:12> Resident Involvement: Resident Care Provided Care Provided: OB Delivery (Post )
[2022-07-13] MEDS ORDERED: diphenhydrAMINE Capsule 25 MG CAP PO ONE (07:37)
[2022-07-13] MEDS: DOCUSATE SODIUM 100 MG CAP PO SCH ×2 (09:58→20:16)
[2022-07-13] MEDS: PRENATAL VITAMIN 1 TAB PO SCH (09:58)
[2022-07-13] MEDS ORDERED: ONDANSETRON INJ 2 MG/ML 2 ML VIAL IV PRN (17:44)
[2022-07-13] MEDS ORDERED: KETOROLAC 30 MG/ML VIAL IV PRN (17:44)
[2022-07-13] MEDS ORDERED: CALCIUM CARBONATE 500 MG CHEWABLE TAB PO PRN (20:32)
[2022-07-13] MEDS: IBUPROFEN 600 MG TAB PO PRN (22:26)
[2022-07-13] MEDS: oxyCODONE/ACETAMINOPHEN 5mg/325mg TAB PO PRN (22:26)
[2022-07-14 07:09] LABS: Hematocrit (blood only) 22.9 % (34.1-44.9); Hemoglobin 7.5 g/dl (12.0-16.0); Mean Corpuscular Hemoglobin 28.7 pg (25.0-34.0); Mean Corpuscular Hgb Conc 32.8 g/dL (32.0-36.0); Mean Corpuscular Volume 87.7 fL (80.0-100.0); Mean Platelet Volume 10.6 fL (9.4-12.3); Platelet Count 184 K/uL (130-400); RDW Coefficient of Variation 13.9 % (11.5-14.5); RDW Standard Deviation 44.5 fL (36.4-46.3); Red Blood Count 2.61 M/uL (3.93-5.22); White Blood Count 13.29 K/ul (4.8-10.8)
--- NOTE | 2022-07-14 07:11 | Obstetrical Progress Note ---
Date of Service <Stormy Terrell Bolaños DO - Last Filed: 07/14/22 07:58> July 14, 2022 Assessment & Plan <Stormy Terrell Bolaños DO - Last Filed: 07/14/22 07:58> (1) Status post section: plan for d/c Jimenez, do a trial of OOB and ambulation and then progress diet as tolerated. Hemoglobin= 7.5 this morning. Denies lightheadedness, dizziness. <Smith Salvador MD - Last Filed: 07/14/22 08:31> (1) Status post section: Subjective <Stormy Bolaños DO - Last Filed: 07/14/22 07:58> Linda is a 36 y/o female who is POD #2 following delivery at 34 0/7 weeks. She had di/di twins. Twin A was born via and Twin B was born via stat C Section due to umbical cord prolapse. Moderate abdominal cramping well managed on analgesics. Is voiding. Has been able to ambulate. Is passing gas. Has some persistent lochia with some improvement this morning. Hopes to breastfeed in the future and plans to pump today. Review of Systems Denies fever, chills, sweats Denies shortness of breath, difficulty breathing, chest pain, palpitations, chest pressure. Denies breast pain. Denies dysuria. Denies headache or changes in vision. Physical Exam <Stormy Bolaños DO - Last Filed: 07/14/22 07:58> General: Alert, oriented. No acute distress. Cardiac: Regular rate and rhythm, no murmurs/rubs/gallops. Respiratory: Clear to auscultation bilaterally a/p, no wheezes/rales/rhonchi. No increased work of breathing. Symmetrical chest rise. No respiratory distress. Abdomen: Soft, nontender, nondistended. Bowel sounds present. Uterus: Uterine fundus firm, palpable 1 cm below umbilicus. WEI dressing in place Lower Extremities: No lower extremity edema or swelling. No deep calf pain. Maite's negative bilaterally. Results & Data ([facility]) <Stormy Bolaños DO - Last Filed: 07/14/22 07:58> Vital Signs (Past 12 Hours) Vital Signs Temp Pulse Resp BP Pulse Ox O2 Del Method 07/13/22 22:59 36.7 C 75 18 93/59 L 98 Room Air <Smith Salvador MD - Last Filed: 07/14/22 08:31> Co-Signing Physician Notes Patient seen with resident and agree with above findings and plan. Patient doing and requesting discharge today. Patient is noted have a hemoglobin of 7.5 in discussed concern for anemia. Patient reports bleeding is minimal. Hemoglobin is consistent with expectations from surgical blood loss. Patient is denying any anemia symptoms. Patient is requesting discharge so that she can visit her babies Who were in the NICU at [facility]. I discussed anemia symptoms and recommended she seek urgent care If she develops any anemia symptoms.
[2022-07-14 07:32] LABS: Basophils # (auto) 0.03 K/uL (0-0.2); Basophils % (auto) 0.2 %; Eosinophils # (auto) 0.16 K/uL (0-0.50); Eosinophils % (auto) 1.2 %; Immature Granulocytes # (auto) 0.07 K/uL (0.00-0.02); Immature Granulocytes % (auto) 0.5 %; Lymphocytes # (auto) 2.48 K/uL (1.2-3.4); Lymphocytes % (auto) 18.7 %; Monocytes # (auto) 0.96 K/uL (0.24-0.82); Monocytes % (auto) 7.2 %; Neutrophils # (auto) 9.59 K/uL (1.4-6.5); Neutrophils % (auto) 72.2 %
[2022-07-14] MEDS: oxyCODONE/ACETAMINOPHEN 5mg/325mg TAB PO PRN (07:34)
[2022-07-14] MEDS: IBUPROFEN 600 MG TAB PO PRN (07:34)
[2022-07-14] MEDS: DOCUSATE SODIUM 100 MG CAP PO SCH (07:34)
[2022-07-14] MEDS: PRENATAL VITAMIN 1 TAB PO SCH (07:34)
[2022-07-15 07:21] LABS: Codeine Urine NEGATIVE ng/mL (<50); Hydrocodone Urine NEGATIVE ng/mL (<50); Hydromor Urine NEGATIVE ng/mL (<50); Morphine Urine 4940 ng/mL (<50); Norhydrocodone Conf Ur NEGATIVE ng/mL (<50); Noroxycodone Urine NEGATIVE ng/mL (<50); Oxycodone Urine NEGATIVE ng/mL (<50); Oxymorph Urine NEGATIVE ng/mL (<50)
--- NOTE | 2022-07-19 01:29 | Discharge Summary ---
Date of Service July 19, 2022 Admission HPI Per Admitting Provider 36yo @ 34 0/7 with di/di twins, gush of clear fluid at home at 3:30 pm today. No vaginal bleeding. Some decrease in movement of babies today, but currently feeling them moving. Also feeling ctx, not really able to quantify. She also has asthma, occasional use of inhaler. H/o laparoscopic gallbladder removal. Was attending routine care at [place], however has moved to [place] and had her initial nursing visit with our practice. Upcoming first doctor visit with our practice is on Saturday. History of vaginal delivery x 2, her other children are 14 and 16 years old. Discharge Data Consultations 07/12/22 16:39 Consult Anesthesiology Stat Procedures Performed Operation Date: 07/12/22 23:30 Actual Procedures p Section in LD for the of a live male "B" @ 2326(Bilateral) - Anya Yu DO Hospital Course (1) Dichorionic diamniotic twin : Admitted in labor at 34w with SROM. Progressed to vaginal delivery of Twin A, c -section of Twin B. Both babies were flown to NICU. Patient had routine postop care, DC on POD2. Coding Level of Care Code None Diagnoses Dichorionic diamniotic twin O30.049
== END 2022-07-14 10:10 | disposition home or self-care (01) | DRG 788 ==
LOC: OPB 15:51 → 4S1 15:53 → 4E2 07-13 04:03
DX: O30.043 Twin pregnancy, dichorionic/diamniotic, third trimester; Z91.030 Bee allergy status; O69.0XX0 Labor and delivery complicated by prolapse of cord, not applicable or unspecified; Z3A.34 34 weeks gestation of pregnancy; Z37.2 Twins, both liveborn; Z88.2 Allergy status to sulfonamides; Z88.0 Allergy status to penicillin